=== PATIENT | male | born 1950 | race Caucasian/White ===

== ENCOUNTER 2020-02-20 04:37 | Emergency (ER) | payer BC ==
--- OUTSIDE RECORDS SUMMARY | 2020-02-20 04:43 | XMS REPORT | Continuity of Care Document ---
:1950 External Reference #:[id number] Author Name Oli Horne MD (transmitted by agent of provider Maggie Holm) Address [address] [place] [address] Problems Active Problems Provider Date Essential hypertension Hilario Saucedo M.D. Onset: 05/04/2012 Anxiety state Hilario Saucedo M.D. Onset: 05/04/2012 Pure hypercholesterolemia Hilario Saucedo M.D. Onset: 05/04/2012 Impaired fasting glycemia Hilario Saucedo M.D. Onset: 05/04/2012 Type 2 diabetes mellitus Hilario Saucedo M.D. Onset: 10/31/2016 Social History Type Date Description Comments Sex Unknown Tobacco Use Start: Unknown Former cigarette x 30 years. Quit age smoker--Quit 10 Yrs 45 Ago--Smoked 1-2 Cigs/Day On Avg. Smoking Status Reviewed: 05/05/18 Former cigarette x 30 years. Quit age smoker--Quit 10 Yrs 45 Ago--Smoked 1-2 Cigs/Day On Avg. ETOH Use Admits to problems with drinking. alcohol. Has trouble stopping once he starts Exercise Exercises regularly 5 days a week he goes Type/Frequency to they gym and swims 20-30min and weight.s Allergies, Adverse Reactions, Alerts Description No Known Drug Allergies Medications Active Medications SIG Qnty Indications Ordering Date Provider Gabapentin take 1-2 capsules 45caps Oli 02/19/2020 100mg by mouth up to 3 MD Ozzie Capsules times a day Propranolol HCL Take One To Two 30tabs Hilario Saucedo 12/10/2019 10mg Tablets By Mouth M.D. Tablets Three Times A Day as Needed For Anxiety Paroxetine HCL Take One Tablet By 90tabs F41.1 Hilario Saucedo 08/11/2018 40mg Mouth Every Day M.D. Tablets Alprazolam take 1-2 tablets 60tabs Hilario Saucedo, 08/11/2018 0.25mg at bedtime as M.D. Tablets needed (do not drive) maximum daily dose = 2 Colcrys take 2 tablets by 30tabs M10.9 Hilario Saucedo, 04/16/2018 0.6mg Tablets mouth at onset of M.D. attack then take 1 tablet by mouth 2 hours later Amlodipine Besylate take one tablet by 90tabs I10 Hilario Saucedo, 10/16/2017 5mg mouth every day M.D. Tablets Metformin HCL Take One Tablet By 180tabs E11.9 Hilario Saucedo, 04/16/2017 1000mg Mouth Twice A Day M.D. Tablets Chlorthalidone Take One Tablet By 90tabs I10 Hilario Saucedo, 10/31/2016 25mg Mouth Every Day M.D. Tablets Lisinopril Take One Tablet By 90tabs I10 Hilario Saucedo, 01/12/2015 40mg Tablets Mouth Every Day M.D. Atorvastatin Calcium Take One Tablet By 90tabs E78.0 Hilario Saucedo, 2014 Mouth Every Day M.D. 10mg Tablets Kristian Microlet use to test blood 100units E11.9 Hilario Saucedo, 10/29/2013 Lancets sugars once times M.D. Misc a day and as needed Contour Next Blood Use Daily And as 100units E11.9 Hilario Saucedo, 10/29/2013 Glucose Test Needed M.D. Strips Atenolol take one tablet by 90tabs I10 Hilario Saucedo, 10/10/2010 50mg Tablets mouth once a day M.D. Lancets Use to check BG 50units Mely Werner, 04/26/2010 Misc bid M.D., R.D. Vitamin D-3 Super 1 po qd Mely Werner, 02/10/2010 Strength M.D., R.D. 2000Unit Tablets Aspirin 1 po qd I10 Hilario Saucedo, 08/11/2009 81mg Chewtabs M.D. Vitamin B12 2/3 milliliters by Unknown 3000mcg/ML mouth every day Liquid Magnesium 1 by mouth Unknown 200mg everyday for low Chewtabs magnesium Vitamin B-Complex 1 per day Unknown Tablets Medications Administered in Office Medication SIG Qnty Indications Ordering Provider Date Vitamin B-12 Injection-To [facility] 11/20/2019 1000mcg Injection Vitamin B-12 Injection-To Oli Horne MD 11/13/2019 1000mcg Injection Vitamin B-12 Injection-To [facility] 11/02/2019 1000mcg Injection Immunizations CPT Code Status Date Vaccine Lot # [id number] Given 11/20/2019 Tdap (Adacel) [id number] 43248 Given 08/26/2019 [place] [address] Given 09/16/2018 Influenza Vaccine High Dose PF [id number] 70867 Given 09/19/2017 Influenza Virus Vaccine, Quadrivalent, 3 Yr > Quad, Preserv Free 35602 Given 07/26/2016 Influenza Virus Vaccine, Quadrivalent, 3 Yr > Quad, Preserv Free 31183 Given 09/06/2015 Prevnar-13 Pneumococcal Conjugate Vaccine [id number] 28751 Given 08/05/2015 Influenza Virus Vaccine, Quadrivalent, 3 Yr > Quad, Preserv Free 23044 Given 09/02/2014 Pneumovax 23 (PPSV23) 65+ years or high risk 2 to [id number] 64 year old 63105 Given 08/02/2014 Influenza Virus Vaccine, Quadrivalent, 3 Yr > Quad, Preserv Free 00181 Given 08/28/2013 Influenza Vaccine-Preservative Free 3 Yrs And Above 47805 Given 08/08/2013 Zoster Vaccine 21961 Given 08/11/2009 Tdap (Adacel) [id number] Vital Signs Date Vital Result Comment 11/13/2019 9:04am Weight 222.00 lb Weight 100.699 kg BP Systolic 132 mmHg BP Diastolic 70 mmHg Heart Rate 63 /min Body Temperature 96.9 F Respiratory Rate 16 /min 10/30/2019 9:35am Weight 222.00 lb Weight 100.699 kg BP Systolic 134 mmHg BP Diastolic 72 mmHg Heart Rate 60 /min Body Temperature 97.6 F Respiratory Rate 16 /min O2 % BldC Oximetry 98 % Results Test Acquired Date Facility Test Result H/L Range Note Comp Metabolic 10/30/2019 [facility] Sodium 137 mmol/ L Normal 135-145 Panel [phone] Potassium 4.7 mmol/L Normal 3.5-5.0 Chloride 96 mmol/L Low 101-111 Co2 Carbon Dioxide 32 mmol/L Normal 22-32 Anion Gap 9 mmol/L Normal 2-11 Glucose 264 mg/dL High 70-100 Blood Urea Nitrogen 14 mg/dL Normal 6-24 Creatinine 1.16 mg/dL Normal 0.67-1.17 BUN/Creatinine Ratio 12.1 Normal 8-20 Calcium 10.4 mg/dL High 8.6-10.3 Total Protein 7.8 g/dL Normal 6.4-8.9 Albumin 5.1 g/dL Normal 3.2-5.2 Globulin 2.7 g/dL Normal 2-4 Albumin/Globulin Ratio 1.9 Normal 1-3 Total Bilirubin 0.60 mg/dL Normal 0.2-1.0 Alkaline Phosphatase 36 U/L Normal 34-104 Alt 26 U/L Normal 7-52 Ast 22 U/L Normal 13-39 Egfr Non- 62.4 >60 Egfr 75.5 >60 1 CBC Auto 10/30/2019 [facility] White Blood 4.8 10^3/ uL Normal 3.5-10.8 Diff [phone] Count Red Blood Count 4.60 10^6/uL Normal 4.18-5.48 Hemoglobin 15.0 g/dL Normal 14.0-18.0 Hematocrit 44 % Normal 42-52 Mean Corpuscular Volume 95 fL High 80-94 Mean Corpuscular Hemoglobin 33 pg High 27-31 Mean Corpuscular HGB Conc 35 g/dL Normal 31-36 Red Cell Distribution Width 14 % Normal 10-15 Platelet Count 265 10^3/uL Normal 150-450 Mean Platelet Volume 8.0 fL Normal 7.4-10.4 Abs Neutrophils 3.0 10^3/uL Normal 1.5-7.7 Abs Lymphocytes 1.0 10^3/uL Normal 1.0-4.8 Abs Monocytes 0.4 10^3/uL Normal 0-0.8 Abs Eosinophils 0.3 10^3/uL Normal 0-0.6 Abs Basophils 0.1 10^3/uL Normal 0-0.2 Abs Nucleated RBC 0.0 10^3/uL Granulocyte % 61.8 % Lymphocyte % 21.6 % Monocyte % 9.3 % Eosinophil % 6.1 % Basophil % 1.2 % Nucleated Red Blood Cells % 0.0 Laboratory test 10/30/2019 [facility] Vitamin B12 177 pg/mL Low 180-914 2 finding [phone] Folic Acid (Folate) 12.42 ng/mL >3.99 3 TSH (Thyroid Stim Horm) 1.11 mcIU/mL Normal 0.34-5.60 4 Hemoglobin A1c (Glyco HGB) 6.4 % High 4.0-5.6 5 Urine Microalbumin 08/27/2019 [facility] Ur Microalbumin 21.8 mg/L Random [phone] (mg/L) Urine Creatinine 119.12 mg/dL Urine Microalbumin/Creatinine 18.3 Normal <31 Laboratory test 08/21/2019 [facility] Hemoglobin A1c 6.5 % High 4.0-5.6 6 finding [phone] CBC Auto Diff 08/21/2019 [facility] White Blood 6.0 Normal 3.5-10.8 [phone] Count 10^3/uL Red Blood Count 4.27 10^6/uL Normal 4.18-5.48 Hemoglobin 13.6 g/dL Low 14.0-18.0 Hematocrit 40 % Low 42-52 Mean Corpuscular Volume 94 fL Normal 80-94 Mean Corpuscular Hemoglobin 32 pg High 27-31 Mean Corpuscular HGB Conc 34 g/dL Normal 31-36 Red Cell Distribution Width 13 % Normal 10-15 Platelet Count 241 10^3/uL Normal 150-450 Mean Platelet Volume 7.7 fL Normal 7.4-10.4 Abs Neutrophils 3.7 10^3/uL Normal 1.5-7.7 Abs Lymphocytes 1.4 10^3/uL Normal 1.0-4.8 Abs Monocytes 0.5 10^3/uL Normal 0-0.8 Abs Eosinophils 0.4 10^3/uL Normal 0-0.6 Abs Basophils 0.0 10^3/uL Normal 0-0.2 Abs Nucleated RBC 0.0 10^3/uL Granulocyte % 61.0 % Lymphocyte % 23.0 % Monocyte % 8.6 % Eosinophil % 6.8 % Basophil % 0.6 % Nucleated Red Blood Cells % 0.0 Comp Metabolic 08/21/2019 [facility] Sodium 138 mmol/ L Normal 135-145 Panel [phone] Potassium 4.0 mmol/L Normal 3.5-5.0 Chloride 98 mmol/L Low 101-111 Co2 Carbon Dioxide 32 mmol/L Normal 22-32 Anion Gap 8 mmol/L Normal 2-11 Glucose 98 mg/dL Normal 70-100 Blood Urea Nitrogen 19 mg/dL Normal 6-24 Creatinine 1.05 mg/dL Normal 0.67-1.17 BUN/Creatinine Ratio 18.1 Normal 8-20 Calcium 10.0 mg/dL Normal 8.6-10.3 Total Protein 7.5 g/dL Normal 6.4-8.9 Albumin 4.9 g/dL Normal 3.2-5.2 Globulin 2.6 g/dL Normal 2-4 Albumin/Globulin Ratio 1.9 Normal 1-3 Total Bilirubin 0.50 mg/dL Normal 0.2-1.0 Alkaline Phosphatase 33 U/L Low 34-104 Alt 25 U/L Normal 7-52 Ast 20 U/L Normal 13-39 Egfr Non- 70.0 >60 Egfr 84.7 >60 7 Lipid Profile 08/21/2019 [facility] Triglycerides 282 mg/dL 8 (Trig/Chol/HDL) [phone] Cholesterol 168 mg/dL 9 HDL Cholesterol 53.3 mg/dL 10 LDL Cholesterol 58 mg/dL 11 Laboratory test 08/21/2019 [facility] PSA Screening 1.041 Normal 0-4.000 12 finding [phone] ng/mL 1 Because ethnic data is not always readily available, this report includes an eGFR for both -Americans and non- Americans. The National Kidney Disease Education Program (NKDEP) does not endorse the use of the MDRD equation for patients that are not between the ages of 18 and 70, are , have extremes of body size, muscle mass, or nutritional status, or are non- or non-. According to the National Kidney Foundation, irrespective of diagnosis, the stage of the disease is based on the level of kidney function: Stage Description GFR(mL/min/1.73 m(2)) 1 Kidney damage with normal or decreased GFR 90 2 Kidney damage with mild decrease in GFR 60-89 3 Moderate decrease in GFR 30-59 4 Severe decrease in GFR 15-29 5 Kidney failure <15 (or dialysis) 2 Normal Range 180 to 914 Indeterminate Range 145 to 180 Deficient Range <145 3 [id number] 4 [id number] 5 Therapeutic target for the treatment of diabetes mellitus patients is <7% HBA1C, and in selective patients <6.0%. Please refer to [place] [employer] diabetic care guidelines for further information. 6 Therapeutic target for the treatment of diabetes mellitus patients is <7% HBA1C, and in selective patients <6.0%. Please refer to [place] [employer] diabetic care guidelines for further information. 7 Because ethnic data is not always readily available, this report includes an eGFR for both -Americans and non- Americans. The National Kidney Disease Education Program (NKDEP) does not endorse the use of the MDRD equation for patients that are not between the ages of 18 and 70, are , have extremes of body size, muscle mass, or nutritional status, or are non- or non-. According to the National Kidney Foundation, irrespective of diagnosis, the stage of the disease is based on the level of kidney function: Stage Description GFR(mL/min/1.73 m(2)) 1 Kidney damage with normal or decreased GFR 90 2 Kidney damage with mild decrease in GFR 60-89 3 Moderate decrease in GFR 30-59 4 Severe decrease in GFR 15-29 5 Kidney failure <15 (or dialysis) 8 Desirable: <150 Borderline High: 150-199 High: 200-499 Very High: >500 9 Desirable: <200 Borderline High: 200-239 High: >239 10 Low: <40 Desirable: 40-60 High: >60 11 Desirable: <100 Near Optimal: 100-129 Borderline High: 130-159 High: 160-189 Very High: >189 12 Serum levels of PSA measured using the Azar Mo-DV DXI Hybritech immunoassay should not be interpreted as absolute evidence of the presence or absence of disease. The PSA value should be used in conjunction with other pertinent clinical diagnostic procedures. The values obtained with different assay methods or kits cannot be used interchangeably. Procedures Date Code Description Status 11/20/2019 25478 Therapeutic,Prophylactic,Or Diagnostic Inj,SC/Im Completed Specify Drug 11/13/2019 77947 Therapeutic,Prophylactic,Or Diagnostic Inj,SC/Im Completed Specify Drug 11/02/2019 24468 Therapeutic,Prophylactic,Or Diagnostic Inj,SC/Im Completed Specify Drug 12/12/2014 [id number] Colonoscopy Completed Medical Devices Description No Information Available Encounters Type Date Location Provider Dx Diagnosis Office Visit 11/13/2019 Main Office Oli Horne E53.8 Deficiency of other 9:00a specified B group vitamins Office Visit 10/30/2019 Main Office Oli Horne, R41.0 Disorientation , 9:45a MD unspecified Office Visit 08/27/2019 Main Office Hilario Saucedo M.D. E11.9 Type 2 diabetes 10:00a mellitus without complications I10 Essential (primary) hypertension F41.1 Generalized anxiety disorder M10.9 Gout, unspecified Assessments Date Code Description Provider 02/19/2020 S76.212A Strain of adductor muscle, fascia and tendon Oli Horne MD of left thigh, initial encounter 02/19/2020 M54.32 Sciatica, left side Oli Horne MD 11/20/2019 Z23 Encounter for immunization Hilario Saucedo M.D. 11/20/2019 E53.8 Deficiency of other specified B group Hilario Saucedo M.D. vitamins 11/13/2019 E53.8 Deficiency of other specified B group Oli Horne MD vitamins 11/02/2019 E53.8 Deficiency of other specified B group Hilario Saucedo M.D. vitamins 10/30/2019 R41.0 Disorientation, unspecified Oli Horne MD 08/27/2019 E11.9 Type 2 diabetes mellitus without Hilario Saucedo M.D. complications 08/27/2019 I10 Essential (primary) hypertension Hilario Saucedo M.D. 08/27/2019 F41.1 Generalized anxiety disorder Hilario Saucedo M.D. 08/27/2019 M10.9 Gout, unspecified Hilario Saucedo M.D. Plan of Treatment No Information Available Functional Status Description No Information Available Mental Status Description No Information Available Referrals Description No Information Available
[2020-02-20] MEDS ORDERED: methylPREDNISolone 125 MG* 2 ML VIAL IV ONE (04:50)
[2020-02-20] MEDS ORDERED: diPHENhydraMINE IV* 50 MG/ML 1 ml VIAL (BENADRYL) IV ONE (04:50)
[2020-02-20] MEDS ORDERED: Famotidine IV* 10 MG/ML 2 ML (20 mg) IV SLOW PU ONE (04:52)
--- NOTE | 2020-02-20 05:18 | ED ---
Allergic Reaction/Systemic - HPI Summary HPI Summary: 70 year old M presented to the ER via EMS with a chief complaint of an allergic reaction onset around 00:00. Patient states that he has hives all over his body but mostly concentrated on his legs. At 00:00 on 02/20/2020, patient experienced chills when getting out of bed, fever, hives, and a swollen lip. Patient reports slight difficulty swallowing and states that he could not drink water. He denies chest pain and SOB. Patient states that he has experienced this before. Patient states that he visited his doctor on 02/19/2020 for his severe sciatica and was prescribed gabapentin and has not made any other lifestyle changes relating to his new symptoms. He has not taken any medications as treatment. Patient additionally has a PMHx of diabetes, HTN, depression. Patient denies tobacco use, marijuana use, and nonprescription drug use. He denies having any surgical procedures since his childhood. Patient has a FHx of diabetes and CAD. No known allergies. - History of Current Complaint Chief Complaint: EDAllergicReaction Time Seen by Provider: 02/20/20 04:45 Hx Obtained From: Patient Onset/Duration: Sudden Onset, Still Present Severity Initially: Mild Severity Currently: None Pain Intensity: 0 Pain Scale Used: 0-10 Numeric Location: Diffuse Character: Swelling - Swollen lip., Hives Aggravating Factor(s): Nothing Alleviating Factor(s): Nothing Associated Signs And Symptoms: Positive: Throat Tightening - Difficulty swallowing., Other: - Chills.. Negative: Chest Pain, Difficulty Breathing - Patient denies SOB. - Related Hx Possible Reaction To: Medications - Allergies/Home Medications Allergies/Adverse Reactions: Allergies Allergy/AdvReac Type Severity Reaction Status Date / Time No Known Allergies Allergy Verified 02/20/20 04:53 Home Medications: Home Medications Aspirin 81 mg PO DAILY 11/03/14 [History Confirmed 02/20/20] Atenolol TAB* 50 mg PO DAILY 11/03/14 [History Confirmed 02/20/20] Lisinopril TAB* 40 mg PO DAILY 11/03/14 [History Confirmed 02/20/20] PARoxetine HCL TAB* 40 mg PO DAILY 11/03/14 [History Confirmed 02/20/20] metFORMIN* 1,000 mg PO BID 11/03/14 [History Confirmed 02/20/20] ALPRAZolam [Alprazolam] 0.25 mg PO SEE INSTRUCTIONS 02/20/20 [History Confirmed 02/20/20] Atorvastatin* [Lipitor*] 10 mg PO DAILY 02/20/20 [History Confirmed 02/20/20] Gabapentin CAP(*) [Neurontin 100 mg CAP(*)] 100 mg PO 02/20/20 [History] [place]-3/Dha/Epa/Fish Oil [Fish Oil 1,000 mg Softgel] 1,000 mg PO 02/20/20 [ History] amLODIPine TAB* [Norvasc 5 mg TAB*] 5 mg PO DAILY 02/20/20 [History Confirmed ] PMH/Surg Hx/FS Hx/Imm Hx Endocrine/Hematology History: Reports: Hx Diabetes Cardiovascular History: Reports: Hx Hypertension Psychiatric History: Reports: Hx Depression - Surgical History Surgical History: Yes Surgery Procedure, Year, and Place: as child Infectious Disease History: No Infectious Disease History: Denies: Traveled Outside the [place] in Last 30 Days - Family History Known Family History: Positive: Cardiac Disease, Diabetes - Social History Alcohol Use: Daily Hx Substance Use: No Substance Use Type: Reports: None Hx Tobacco Use: Yes Smoking Status (MU): Former Smoker - Additional Comments History Additional Comments: DM, HTN, depression, former smoker Review of Systems - ROS Summary Review of Systems Summary: Home Medications Medication Instructions Recorded Confirmed Type Aspirin 81 mg PO DAILY 11/03/14 02/20/20 History Atenolol TAB* 50 mg PO DAILY 11/03/14 02/20/20 History Lisinopril TAB* 40 mg PO DAILY 11/03/14 02/20/20 History PARoxetine HCL TAB* 40 mg PO DAILY 11/03/14 02/20/20 History metFORMIN* 1,000 mg PO BID 11/03/14 02/20/20 History ALPRAZolam [Alprazolam] 0.25 mg PO SEE INSTRUCTIONS 02/20/20 02/20/20 History Atorvastatin* [Lipitor*] 10 mg PO DAILY 02/20/20 02/20/20 History Gabapentin CAP(*) [Neurontin 100 100 mg PO 02/20/20 History mg CAP(*)] [place]-3/Dha/Epa/Fish Oil [Fish Oil 1,000 mg PO 02/20/20 History 1,000 mg Softgel] amLODIPine TAB* [Norvasc 5 mg TAB*] 5 mg PO DAILY 02/20/20 02/20/20 History Positive: Fever, Chills, Other - Swollen lip. Positive: Other - Difficultly swallowing. Negative: Chest Pain Negative: Shortness Of Breath Positive: Rash - hive-like All Other Systems Reviewed And Are Negative: Yes Physical Exam - Summary Physical Exam Summary: General: Well-developed, Well-nourished elderly male. No acute distress. HEENT: Normocephalic, Atraumatic; Swollen right upper lip Eyes: Conjuctiva normal, PERRL. Oropharynx: Clear, mucous membranes moist, (-) exudates. Neck: Soft, FROM, (-) lymphadenopathy, (-) thyromegaly, (-) JVD. Cardiovascular: Normal sinus rhythm, (-) murmur. Lungs: Clear to auscultation bilaterally (-) wheezes, (-) rales, (-) rhonchi. Abdomen: Soft, non-tender, non-distended, (-) organomegaly, normal bowel sounds. Back: (-) CVA tenderness Extremities: No edema. Skin: Diffuse hives on arms, eyes, upper face and legs. Neuro: Alert and oriented x3, moves all extremities equally. No ataxia. No gait disturbance. No sensory deficit. Normal strength, normal sensation. Psychiatric: Mood normal, affect normal. Triage Information Reviewed: Yes Vital Signs On Initial Exam: Initial Vitals Temp Pulse Resp BP Pulse Ox 97.1 F 68 17 143/68 99 02/20/20 04:39 02/20/20 04:39 02/20/20 04:39 02/20/20 04:39 02/20/20 04:39 Vital Signs Reviewed: Yes Procedures - Sedation Patient Received Moderate/Deep Sedation with Procedure: No Diagnostics - Vital Signs Vital Signs Temp Pulse Resp BP Pulse Ox 02/20/20 04:39 97.1 F 68 17 143/68 99 - Laboratory Lab Statement: Any lab studies that have been ordered have been reviewed, and results considered in the medical decision making process. Re-Evaluation - Re-Evaluation First Eval Re-Evaluation Time: 05:55 Comment: I discussed all results. Discussed all symptoms that warrant return to the ED. Allergic Reaction Course/Dx - Course Course Of Treatment: 70 year old male presents with allergic reaction.he states he woke up at about midnight. Head hives all over his body. Had some chills. Swollen lip. no chest pain or shortness of breath.he seems a little difficulty swallowing water. Admits to starting a new medication, gabapentin for sciatica. he is mildly anxious appearing upon arrival. Not in any distress. Lungs are clear. No swelling of the oropharynx. slight swelling of his right upper lip. patient given Solu-Medrol, Benadryl, Pepcid. Significant improvement. Patient discharged home. Hold gabapentin. Discuss with PCP in the morning. - Diagnoses Provider Diagnoses: Allergic reaction Discharge ED - Sign-Out/Discharge Documenting (check all that apply): Patient Departure - Discharged to home. - Discharge Plan Condition: Stable Disposition: HOME Patient Education Materials: Urticaria (ED), General Allergic Reaction (ED) Referrals: Hilario Saucedo MD [Primary Care Provider] - 3 Days Additional Instructions: Please refrain from taking gabapentin until further consulting with your primary care physician. Please contact your primary care physician in the morning and take Benadryl every 6 hours as needed if hives return. Please return to the ER for any new or worsening symptoms. - Billing Disposition and Condition Condition: STABLE Disposition: Home - Attestation Statements Document Initiated by Gioibbandar: Yes Documenting Scribe: Shanna Trejo Provider For Whom Martir is Documenting (Include Credential): Emily Grey MD Scribe Attestation: Kalina Henning Natalie George, scribed for Emily Grey MD on 02/21/20 at 0021. Scribe Documentation Reviewed: Yes Provider Attestation: The documentation as recorded by the martir, Shanna Trejo accurately reflects the service I personally performed and the decisions made by , Emily Grey MD Status of Scribe Document: Viewed
[2020-02-20 06:23] VITALS: BP 143/66
== END 2020-02-20 06:08 | disposition home or self-care (01) ==
LOC: ED 04:37
DX: T78.40XA Allergy, unspecified, initial encounter (principal); I10 Essential (primary) hypertension; E11.9 Type 2 diabetes mellitus without complications; F32.9 Major depressive disorder, single episode, unspecified; Z87.891 Personal history of nicotine dependence; Z79.899 Other long term (current) drug therapy; Z79.82 Long term (current) use of aspirin; Z79.84 Long term (current) use of oral hypoglycemic drugs
CPT/HCPCS: 96374; 96375; 99283; J1200; J2930